=== PATIENT | female | born 1970 | race Caucasian/White ===

== ENCOUNTER 2016-06-27 10:27 | Emergency (ER) | payer OTHER ==
[2016-06-27 11:22] LABS: BASO % 0.4 % (0.1-1.2); EOS # 0.1 10_X3_uL (0.0-0.4); EOS % 0.9 % (0.7-5.8); GRAN # 5.7 10_X3_uL (1.6-6.1); HEMATOCRIT 42.4 % (34-45); HEMOGLOBIN 14.5 g/dL (11.2-15.7); LYMPH # 1.4 10_X3_uL (1.2-3.7); LYMPH % 18.4 % (19.3-51.7); MEAN CORPUSCULAR HEMOGLOBIN 32.4 pg (27.0-33.0); MEAN CORPUSCULAR HGB CONC 34.2 g/dL (32.0-36.0); MEAN CORPUSCULAR VOLUME 94.6 fL (79-95); MEAN PLATELET VOLUME 8.6 fl (7.5-11.5); MONO # 0.6 10_X3_uL (0.2-0.9); MONO % 7.3 % (4.7-12.5); PLATELET COUNT 330 x10_3/uL (182-369); RED BLOOD COUNT 4.48 x10_6/uL (3.9-5.2); RED CELL DISTRIBUTION WIDTH 13.2 % (11.7-14.4); WHITE BLOOD COUNT 7.8 x10_3/uL (4.0-10.0)
[2016-06-27 11:56] LABS: ALBUMIN 4.5 gm/dL (3.4-5.0); ALKALINE PHOSPHATASE 87 U/L (50-136); ALT/SGPT 12 U/L (3.5-33.9); AMYLASE 59 U/L (15.62-74.58); AST/SGOT 16 U/L (7.04-26.96); BLOOD UREA NITROGEN 8 mg/dL (7-18); CALCIUM 9.2 mg/dL (8.7-10.7); CARBON DIOXIDE 21 mmol/L (21-32); CREATININE 0.9 mg/dL (0.6-1.3); GLUCOSE,RANDOM 103 mg/dL (70-99); LIPASE 27 U/L (6.75-60.75); POTASSIUM 3.9 mmol/L (3.5-5.1); SODIUM 137 mmol/L (136-145); TOTAL PROTEIN 7.9 gm/dL (6.4-8.2)
[2016-06-27 11:57] LABS: BILIRUBIN,TOTAL < 0.15 mg/dL (0.0-1.0)
== END 2016-06-27 13:05 | disposition home or self-care (01) ==
LOC: ER 10:27
PROVIDERS: Emergency Medicine
DX: J44.9 Chronic obstructive pulmonary disease, unspecified (principal); J06.9 Acute upper respiratory infection, unspecified; R05 Cough; R19.7 Diarrhea, unspecified; R06.02 Shortness of breath; G40.909 Epilepsy, unspecified, not intractable, without status epilepticus; Z90.49 Acquired absence of other specified parts of digestive tract; F17.210 Nicotine dependence, cigarettes, uncomplicated; Z79.899 Other long term (current) drug therapy
CPT/HCPCS: 36415; 71020; 80053; 82150; 83690; 85025; 87400; 94664; 96372; 99283-25